=== PATIENT | female | born 1985 | race African-American/Black ===

== ENCOUNTER 2017-08-14 11:49 | Observation (INO) | payer OTHER ==
[~2017-08-14] VITALS: Ht 162.6 cm; Wt 89.8 kg
[2017-08-14] MEDS ORDERED: PNV1TABL76 MT (12:05)
== END 2017-08-14 13:10 | disposition home or self-care (01) ==
LOC: L&D 11:49
PROVIDERS: ADMIT Obstetrics & Gynecology; ATTEND Obstetrics & Gynecology
DX: O62.9 Abnormality of forces of labor, unspecified (principal); O26.893 Other specified pregnancy related conditions, third trimester; R05 Cough; J02.9 Acute pharyngitis, unspecified; Z3A.36 36 weeks gestation of pregnancy
CPT/HCPCS: 99281; G0378

== ENCOUNTER 2017-08-30 07:10 | Inpatient (IN) | payer OTHER ==
[~2017-08-30] VITALS: Ht 167.6 cm; Wt 82.6 kg
[~2017-08-30 07:10] MED LIST: PNV1TABL76 MT
[2017-08-30] MEDS ORDERED: DEXT 5%/LR + PITOCIN 20UNITS/L 1,000 ML IV SCH (07:28)
[2017-08-30] MEDS ORDERED: NALOXONE HCL 0.4 MG/ML 1ML VIAL IM PRN (07:30)
[2017-08-30] MEDS ORDERED: CARBOPROST TROMETHAMINE 250 MCG/ML AMPUL IM PRN (07:30)
[2017-08-30] MEDS ORDERED: METHYLERGONOVINE MALEATE 0.2 MG/ML IM PRN (07:30)
[2017-08-30] MEDS: LACTATED RINGERS 1,000 ML IV SCH ×3 (08:04→10:15)
[2017-08-30 08:34] LABS: BASOPHILS % 0.8 % (0.0-2.0); HEMOGLOBIN. 12.2 g/dL (12.0-16.0); LYMPHOCYTES % 26.4 % (20.0-50.0); MEAN CORPUSCULAR HEMOGLOBIN 26.2 pg (28.0-32.0); MEAN CORPUSCULAR VOLUME 77.5 fL (81.0-99.0); MEAN PLATELET VOLUME 10.3 fl (7.4-10.4); MONOCYTES % 12.7 % (2.0-8.0); NEUTROPHILS % 59.1 % (40.0-76.0); PLATELET 121 x1000/uL (130-400); RED BLOOD CELL COUNT 4.65 mill/uL (4.2-5.4); RED CELL DISTRIBUTION WIDTH 15.1 % (11.6-14.6)
[2017-08-30 08:42] LABS: INR 0.9; PARTIAL THROMBOPLASTIN TIME 27.9 sec (23.4-31.0); PROTHROMBIN TIME 9.5 sec (9.4-11.6)
[2017-08-30 09:06] LABS: CLARITY URINE CLEAR (CLEAR); COLOR URINE YELLOW (YELLOW); KETONES URINE NEGATIVE (NEGATIVE); LEUKOCYTE ESTERASE URINE TRACE (NEGATIVE); NITRITE URINE NEGATIVE (NEGATIVE); OCCULT BLOOD URINE NEGATIVE (NEGATIVE); PH URINE 6.5 (4.5-8.0); PROTEIN URINE NEGATIVE (NEGATIVE); SPECIFIC GRAVITY URINE 1.008 (1.005-1.030); UROBILINOGEN URINE 0.2 E.U./dL (0.2-1.0)
[2017-08-30 10:25] LABS: *AMPHETAMINES SCREEN URINE NEGATIVE (NEGATIVE); *BARBITURATES SCREEN URINE NEGATIVE (NEGATIVE); *BENZODIAZEPINES SCREEN URINE NEGATIVE (NEGATIVE); *COCAINE SCREEN URINE NEGATIVE (NEGATIVE); CANNABINOID URINE SCREEN NEGATIVE (NEGATIVE); METHADONE URINE SCREEN NEGATIVE (NEGATIVE); OPIATES URINE SCREEN NEGATIVE (NEGATIVE); PHENCYCLIDINE URINE SCREEN NEGATIVE (NEGATIVE)
[2017-08-30 10:34] LABS: RUBELLA IGG 9.1 IU/mL (4.99-10)
[2017-08-30 10:35] LABS: HEPATITIS B SURFACE ANTIGEN NEGATIVE
[2017-08-30] MEDS ORDERED: MISOPROSTOL 100MCG TABLET VG NR (11:00)
[2017-08-30] MEDS ORDERED: SODIUM CHLORIDE 0.9% 10ML VIAL ONE (11:57)
[2017-08-30] MEDS ORDERED: OXYTOCIN 10 UNITS/ML 1ML ONE (11:57)
[2017-08-30] MEDS ORDERED: CEFAZOLIN SODIUM 1000MG/VIAL ONE (11:57)
[2017-08-30] MEDS ORDERED: EPHEDRINE SULFATE 50MG/ML VIAL ONE (11:57)
[2017-08-30] MEDS ORDERED: ONDANSETRON HCL 4MG/2ML VIAL ONE (11:57)
[2017-08-30] MEDS ORDERED: FENTANYL CITRATE/PF 50MCG/ML 2ML VIAL ONE (12:03)
[2017-08-30] MEDS ORDERED: MORPHINE SULFATE/PF 1MG/ML 10ML AMP ONE (12:03)
[2017-08-30] MEDS ORDERED: DIPHENHYDRAMINE 50MG/ML VIAL ONE (12:04)
[2017-08-30] MEDS ORDERED: KETOROLAC 60MG/2ML VIAL IM ONE (12:04)
[2017-08-30] MEDS ORDERED: HYDROMORPHONE HCL/PF 2MG/ML CPJ IM PRN (13:15)
[2017-08-30] MEDS ORDERED: BISACODYL 10MG SUPP PR PRN (13:15)
[2017-08-30] MEDS ORDERED: ACETAMINOPHEN WITH CODEINE 300/30MG TABLET PO PRN (13:15)
[2017-08-30] MEDS ORDERED: RHO(D) IMMUNE GLOBULIN 300 MCG/SYR IM PRN (13:15)
[2017-08-30] MEDS ORDERED: IBUPROFEN 400MG TABLET PO PRN (13:15)
[2017-08-30] MEDS ORDERED: ONDANSETRON HCL 4MG/2ML VIAL IV PRN (13:45)
[2017-08-30] MEDS ORDERED: BUTORPHANOL TARTRATE 2 MG/ML VIAL IV PRN (13:45)
[2017-08-30] MEDS ORDERED: DIPHENHYDRAMINE 50MG/ML VIAL IV PRN (13:45)
[2017-08-30] MEDS ORDERED: NALOXONE HCL 0.4 MG/ML 1ML VIAL IV PRN (13:45)
[2017-08-30] MEDS ORDERED: KETOROLAC 30MG/ML VIAL IV PRN (13:45)
[2017-08-30] MEDS: DEXT 5%/LR + PITOCIN 20UNITS/L 1,000 ML IV SCH ×2 (13:47→22:26)
[2017-08-30 15:55] VITALS: BP 109/76
[2017-08-30 16:30] VITALS: BP 112/62
[2017-08-30 20:00] VITALS: BP 115/70
[2017-08-30 22:00] VITALS: BP 112/72
[2017-08-31 02:00] VITALS: BP 110/71
[2017-08-31 05:00] VITALS: BP 112/70
[2017-08-31 06:37] LABS: BASOPHILS % 0.5 % (0.0-2.0); EOSINOPHILS % 0.5 % (0.0-5.0); HEMATOCRIT. 31.9 % (36.0-48.0); HEMOGLOBIN. 10.6 g/dL (12.0-16.0); LYMPHOCYTES % 14.7 % (20.0-50.0); MEAN CORPUSCULAR HEMOGLOBIN 25.6 pg (28.0-32.0); MEAN CORPUSCULAR VOLUME 77.3 fL (81.0-99.0); MEAN PLATELET VOLUME 10.3 fl (7.4-10.4); MONOCYTES % 11.1 % (2.0-8.0); NEUTROPHILS % 73.2 % (40.0-76.0); PLATELET 116 x1000/uL (130-400); RED BLOOD CELL COUNT 4.12 mill/uL (4.2-5.4); RED CELL DISTRIBUTION WIDTH 15.4 % (11.6-14.6)
[2017-08-31 08:18] VITALS: BP 116/53
[2017-08-31] MEDS: IBUPROFEN 800MG TABLET PO PRN ×2 (11:39→16:52)
[2017-08-31 12:00] VITALS: BP 115/65
[2017-08-31 16:17] VITALS: BP 97/56
[2017-08-31 20:00] VITALS: BP 112/59
[2017-09-01] MEDS: IBUPROFEN 800MG TABLET PO PRN ×3 (03:23→20:44)
[2017-09-01 04:30] VITALS: BP 109/58
[2017-09-01 08:30] VITALS: BP 94/63
[2017-09-01 16:32] VITALS: BP 108/57
[2017-09-01 20:20] VITALS: BP 107/57
[2017-09-02 00:15] VITALS: BP 106/55
[2017-09-02 04:44] VITALS: BP 106/72
[2017-09-02] MEDS: IBUPROFEN 800MG TABLET PO PRN ×2 (04:44→11:41)
[2017-09-02 08:30] VITALS: BP 108/71
[2017-09-02 11:41] VITALS: BP 108/71
== END 2017-09-02 15:00 | disposition home or self-care (01) | DRG 540 ==
LOC: OBSVTOIN 07:10 → L&D 07:10 → 7EST PP/OB 15:37
PROVIDERS: ADMIT Obstetrics & Gynecology; ATTEND Obstetrics & Gynecology
PROC: 0UB70ZZ Excision of Bilateral Fallopian Tubes, Open Approach (ICD-10-PCS; 2017-08-30)
PROC: 10D00Z1 Extraction of Products of Conception, Low, Open Approach (ICD-10-PCS; principal; 2017-08-30 12:28)
DX: O34.211 Maternal care for low transverse scar from previous cesarean delivery (principal); O99.03 Anemia complicating the puerperium; Z3A.39 39 weeks gestation of pregnancy; Z37.0 Single live birth
CPT/HCPCS: 36415; 80305; 81001; 85025; 85610; 85730; 86592; 86703; 86762; 86850; 86900; 86920; 87340; 88302; 88307; A4216; J0171; J0690; J1200; J1885; J2274; J2405; J2590; J3010; J7120; A4315